=== PATIENT | male | born 1965 | race Caucasian/White ===

== ENCOUNTER 2017-12-16 20:04 | Emergency (ER) | payer OTHER ==
[~2017-12-16] VITALS: Ht 177.8 cm; Wt 72.6 kg
== END 2017-12-16 23:08 | disposition home or self-care (01) ==
LOC: ER 20:04
DX: S01.02XA Laceration with foreign body of scalp, initial encounter (principal); R55 Syncope and collapse; W45.8XXA Other foreign body or object entering through skin, initial encounter; Y93.89 Activity, other specified; Y92.018 Other place in single-family (private) house as the place of occurrence of the external cause; Y99.8 Other external cause status

== ENCOUNTER 2018-02-01 09:48 | Emergency (ER) | payer OTHER ==
[~2018-02-01] VITALS: Ht 177.8 cm; Wt 74.4 kg
== END 2018-02-01 13:03 | disposition home or self-care (01) ==
LOC: ER 09:48
DX: R42 Dizziness and giddiness (principal)